=== PATIENT | female | born 2000 | race Caucasian/White ===

== ENCOUNTER 2024-06-13 16:40 | Emergency (ER) | payer BC, SELFPAY ==
[2024-06-13 16:53] VITALS: BP 126/84; PULSE 114; TEMP 37.3; O2SAT 96; BMI 42.4
--- NOTE | 2024-06-13 17:04 | XR_ITS ---
The [address] [address] Patient Name: GISELL MORRISON MRN: [id number] date: 2000 Sex: F Assigned Patient Location: ER Current Patient Location: ED.MAIN Accession/Order Number: [id number] Exam Date: 06/13/2024 17:35 Report Date: 06/13/2024 18:19 At the request of: MARYLOU MENDOZA Procedure: XR chest 2V Exam: Radiographs: XR chest 2V Reason for exam: cough Comparison: None XR/XR chest 2V IMPRESSION: Right middle lobe consolidation compatible with pneumonia. Remainder the chest is unremarkable. Electronically authenticated by: JOSE CARLOS PIMENTEL Date: 06/13/2024 18:19
[2024-06-13 17:46] LABS: Influenza Virus A Antigen Negative; Influenza Virus B Antigen Negative; Internal Control Within Normal Limits; SARS-CoV-2 Ag NEGATIVE (NEGATIVE)
--- NOTE | 2024-06-13 18:11 | ED_ITS ---
HPI - URI/Sore Throat General Chief Complaint: Upper Respiratory Infection Stated Complaint: COUGH Time Seen by Provider: 06/13/24 18:09 Source: patient Limitations: no limitations History of Present Illness HPI Narrative: Is a pleasant 23-year-old female with a history of ITP who presents to the emergency department with 4 days of a cough. Patient states that the cough is incessant and is caused her to have a very severe headache. Patient states that she has posttussive emesis. She is generally felt lousy and achy everywhere. No known sick contacts or recent travel. No known history of asthma or COPD. Patient is a non-smoker. Symptoms are severe. Unknown what makes her worse. Nothing is made her better and she is taking Sudafed.. Related Data Previous Rx's ?Medication ?Instructions ?Recorded azithromycin 250 mg tablet See Rx Instructions PO .COMPLEX #6 06/13/24 tabs cefdinir 300 mg capsule 300 mg PO BID 10 days #20 caps 06/13/24 codeine 10 mg-guaifenesin 100 mg/5 5 ml PO Q4H PRN cough #120 mL 06/13/24 mL oral liquid Allergies Allergy/AdvReac Type Severity Reaction Status Date / Time No Known Drug Allergies Allergy Verified 06/13/24 16:53 Review of Systems ROS Narrative 10 Systems were reviewed, and unless not ed in the HPI, all other systems are reviewed, unremarkable, or noncontributory. [facility] Social History Little interest or pleasure in doing things: not at all Feeling down, depressed, or hopeless: not at all Exam Narrative Exam Narrative: Prior to examining the patient, I have washed with hospital approved and provided Antiseptic Hand [employer] and have also applied gloves.? Prior to touching the patient, I asked for consent to examine the patient.? General: Alert and oriented, well nourished, mild distress. Originally when I went to see the patient she was having posttussive emesis. Eye: PERRL, EOMI, normal conjunctiva. Tearful HENT: Normocephalic, normal hearing, moist oral mucosa, no scleral icterus Neck: Supple, non-tender, no carotid bruits, no JVD, no lymphadenopathy. Lungs: Clear to auscultation and percussion, non-labored respiration. Bases. Right lung crackles Heart: Normal rate, regular rhythm, no murmur, gallop or edema. Abdomen: Soft, non-tender, non-distended, normal bowel sounds, no masses. Musculoskeletal: Normal range of motion and strength, no tenderness or swelling. Skin: Skin is warm, dry and pink, no rashes or lesions. Red and flushed Neurologic: Awake, alert, and oriented X3, CN II-XII intact. Psychiatric: Cooperative, appropriate mood and affect.? Following the conclusion of the examination, I have washed my hands thoroughly after removing examination gloves. Constitutional Vital Signs, click to edit/add: Last Vital Signs Temp 99.2 F 06/13/24 16:53 Pulse 114 H 06/13/24 16:53 Resp 16 06/13/24 16:53 BP 126/84 06/13/24 16:53 Pulse Ox 96 06/13/24 16:53 O2 Del Method Room Air 06/13/24 16:53 Course Course Hospital Course: Was seen and evaluated in the emergency department at this time she does not criteria. She has evidence of pneumonia but I believe that the patient is stable for discharge home. The headache that is exacerbated by cough but she has no evidence of having a sudden pop in her head she is not having any neurologic deficits. She is not confused. Vital Signs Vital signs: Vital Signs Temperature 99.2 F 06/13/24 16:53 Pulse Rate 114 H 06/13/24 16:53 Respiratory Rate 16 06/13/24 16:53 Blood Pressure 126/84 06/13/24 16:53 Pulse Oximetry 96 06/13/24 16:53 Oxygen Delivery Method Room Air 06/13/24 16:53 Temperature 99.2 F 06/13/24 16:53 Pulse Rate 114 H 06/13/24 16:53 Respiratory Rate 16 06/13/24 16:53 Blood Pressure 126/84 06/13/24 16:53 Pulse Oximetry 96 06/13/24 16:53 Oxygen Delivery Method Room Air 06/13/24 16:53 MDM - URI/Sore Throat Differential Diagnosis Differential diagnosis: Likely upper respiratory infection, croup, otitis media, sinusitis, viral infection, bronchitis, influenza, pharyngitis and other (Pneumonia) Medical Records Attestation: I reviewed the patient's medical records. Medical records narrative: The patient has never been here before Lab Data Attestation: I reviewed the patient's lab results. Labs: Lab Results 06/13/24 Range/Units 17:00 Influenza Type A Ag Negative Influenza Type B Ag Negative SARS-CoV-2 Ag (CV2AG) Negative (NEGATIVE) Imaging Data Chest x-ray: Radiologist's impression: ITS Impressions Chest X-Ray 06/13/24 17:04 IMPRESSION: Right middle lobe consolidation compatible with pneumonia. Remainder the chest is unremarkable. Electronically authenticated by: JOSE CARLOS PIMENTEL Date: 06/13/2024 18:19 Discharge Plan Discharge Chief Complaint: Upper Respiratory Infection Clinical Impression: Pneumonia Qualifiers: Laterality: right Lung location: middle lobe of lung Patient Disposition: Home, Self-Care Time of Disposition Decision: 18:53 Condition: Good Prescriptions / Home Meds: New cefdinir 300 mg capsule 300 mg PO BID 10 Days Qty: 20 0RF azithromycin 250 mg tablet See Rx Instructions .ROUTE .COMPLEX Qty: 6 0RF Rx Instructions: For 250 mg dose pack: take 500 mg today (day 1), then 250 mg for 4 days (days 2-5) codeine-guaifenesin 10-100 mg/5 mL liquid 5 ml PO Q4H PRN (Reason: cough) Qty: 120 0RF Print Language: Vietnamese Referrals: Physician,Non-Staff, MD [Primary Care Provider] - 1 week
== END 2024-06-13 19:05 | disposition home or self-care (01) ==
PROVIDERS: Emergency Medicine; Emergency Provider Emergency Medicine
DX: J18.9 Pneumonia, unspecified organism (principal); Z20.822 Contact with and (suspected) exposure to COVID-19
CPT/HCPCS: 71046; 87804; 87811; 99285